=== PATIENT | male | born 1975 ===

== ENCOUNTER 2024-06-14 08:39 | Outpatient (REF) | payer SELFPAY ==
--- NOTE | ~2024-06-14 | XR_ITS ---
EXAMINATION: Bilateral knee series CLINICAL INFORMATION: Pain in the right and left knee COMPARISON: None. TECHNIQUE: Upright view of both knees. Lateral and patellofemoral view of the left knee axial FINDINGS: Left knee: Postoperative changes related to anterior cruciate ligament reconstruction with interference screws in place. There is mild osteoarthritis of the medial lateral compartments manifested by small marginal osteophytes. Patellofemoral compartment: marginal osteophytes without joint space narrowing indicative of at least mild osteoarthritis. There are multiple loose bodies noted likely within the suprapatellar recess largest measuring 13 mm in smallest measuring 2 mm. Additional small loose body likely in the anterior recess noted on the lateral projection. XR/XR knee LT 3V IMPRESSION: LEFT KNEE: Degenerative changes with loose bodies. Postoperative changes. RIGHT KNEE: Degenerative changes with loose bodies. Electronically signed by: Ralph Amador MD 06/20/2024 01:28 PM EDT
--- NOTE | ~2024-06-14 | XR_ITS ---
EXAMINATION: Bilateral knee series CLINICAL INFORMATION: Pain in the right and left knee COMPARISON: None. TECHNIQUE: Upright view of both knees. Lateral and patellofemoral view of the left knee axial FINDINGS: Left knee: Postoperative changes related to anterior cruciate ligament reconstruction with interference screws in place. There is mild osteoarthritis of the medial lateral compartments manifested by small marginal osteophytes. Patellofemoral compartment: marginal osteophytes without joint space narrowing indicative of at least mild osteoarthritis. There are multiple loose bodies noted likely within the suprapatellar recess largest measuring 13 mm in smallest measuring 2 mm. Additional small loose body likely in the anterior recess noted on the lateral projection. XR/XR knee RT 1V IMPRESSION: LEFT KNEE: Degenerative changes with loose bodies. Postoperative changes. RIGHT KNEE: Degenerative changes with loose bodies. Electronically signed by: Ralph Amador MD 06/20/2024 01:28 PM EDT
== END 2024-06-14 08:40 | disposition home or self-care (01) ==
LOC: HO.HOSX 08:39
PROVIDERS: Visit Provider Physician Assistant
DX: M23.92 Unspecified internal derangement of left knee (principal); M25.561 Pain in right knee; M25.562 Pain in left knee
CPT/HCPCS: 73560; 73562; 99202

== ENCOUNTER 2024-06-14 09:13 | Outpatient (AMB) | payer SELFPAY ==
--- NOTE | 2024-06-14 09:41 | MHC.OFFVIS ---
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 His pain has improved since injury however he feels like his knee will buckle. He attends PT at [facility]. He mentions that his pain has gotten worse and his knee pops when walking. Patient noticed some bruising after the injury as well. He has tried warm compresses which gave him relief. 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 He currently states he has improvement since injury however he does have swelling, bruising and worsening pain in his knee that is aggravated with getting up from a sitting position. He also experiences instability and feels his knee will give out. He hears popping in his knee with ambulation as well as numbness in middle toes. He has tried warm compresses for his knee with benefits. He has been attending physical therapy at [facility]. He has a history of left ACL reconstruction about 20 years ago. Right femur [facility] Social History (Updated 06/14/24 @ 09:43 by Willie Montilla) Alcohol intake: never Substance Use Type: Marijuana Current occupational status: employed Review of Systems Const All systems reviewed & are unremarkable except as noted in HPI and below Physical Exam Const General: cooperative, healthy appearing, comfortable, no acute distress, well developed and alert Orientation/consciousness: patient oriented x3 HEENT Head: Yes normal to inspection, Yes normocephalic and Yes atraumatic Eyes General: appearance normal, both eyes and all related structures Resp Effort & Inspection: normal respiratory effort and able to speak in complete sentences Cardio Rate: regular rate Peripheral pulses: Peripheral pulses 2+ throughout GI Palpation (GI): Soft to palpation Skin Lesions: no lesions Rashes: no rashes Neuro General: patient oriented x3 Extrem Other: Left knee: Skin intact, no erythema or joint effusion. Tenderness along the medial joint line. Full ROM with crepitus. Negative Girma?s. No ligamentous laxity. NVI. Results Reviewed Results Reviewed: X-rays of the left knee obtained in the office today show some mild OA evidence of interference screws in left knee and evidence of IM nail of right femur which is intact no hardware complications. Assessment & Plan Assessment & Plan (1) Internal derangement of left knee: Code(s): M23.92 - Unspecified internal derangement of left knee Category: Medical Plan An MRI of the left knee was ordered to further evaluate the ligamentous structures. He was fit for a stabilizing knee brace. He will see me back once the scan is complete. Orders: Orders XR knee LT 3V Today M25.562 - Pain in left knee XR knee RT 1V Today M25.561 - Pain in right knee MR knee LT wo con Today M17.12 - Unilateral primary osteoarthritis, left knee Patient Instructions: Scribed for Pearl Bonilla PA-C, by [place] biomedical repair technician, on 06/14/2024 at 9:00 AM EST.? I, Pearl Bonilla PA-C, have personally reviewed and agree with the information entered by the scribe. Coding Level of Care Code New Pt Level 3 (15688) Complex EM visit Add On G2211 Diagnoses Internal derangement of left knee M23.92
== END 2024-06-14 10:11 | disposition home or self-care (01) ==
PROVIDERS: Visit Provider Physician Assistant
DX: M23.92 Unspecified internal derangement of left knee (principal)
CPT/HCPCS: 99203; G2211